=== PATIENT | male | born 1995 | race Two or more races ===

== ENCOUNTER 2018-11-22 21:49 | Emergency (ER) | payer MEDICAID, OTHER ==
--- NOTE | 2018-11-22 21:58 | EDPHY ---
H & P Stated Complaint: PASSED OUT YEATERDAY NOW WOLFE, SOB, PRESSURE IN BACK AND CHEST Source: Patient Exam Limitations: No limitations - Personal History Current Tetanus/Diphtheria Vaccine: Yes Current Tetanus Diphtheria and Acellular Pertussis (TDAP): Yes - Medical/Surgical History Hx Asthma: No Hx Chronic Respiratory Disease: No Hx Diabetes: No Hx Cardiac Disease: No Hx Renal Disease: No Hx Cirrhosis: No Hx Alcoholism: No Hx HIV/AIDS: No Hx Splenectomy or Spleen Trauma: No Other PMH: CONCUSSIONS S/P FOOTBALL , - Social History Smoking Status: Never smoked Time Seen by Provider: 11/22/18 21:57 HPI/ROS: HPI: This is a 23-year-old male who presents with Chief Complaint: PASSED OUT YESTERDAY NOW WOLFE, SOB, PRESSURE IN BACK AND CHEST Location:head Quality: Dizziness, fainting Duration: Yesterday Signs and Symptoms: no fever, no nausea, no vomiting, no photophobia, no noise sensitivity, no neck stiffness, no ear pain, no tinnitus, no nasal congestion, no sinus pressure, no weakness, no radiation, no aura, no seizure activity Timing: Lasted for 10-15 seconds per bystander Severity: Moderate Context: Patient reports that he was drinking over the weekend celebrating Evin's Day. He also was using marijuana. Yesterday he was sitting down watching TV when he started to feel "lightheaded" and then "fainted." This was witnessed by bystanders and lasted approximately 10-15 seconds. When he woke up he did not remember "passing out." He reports that since yesterday he has had a generalized headache, not the worse headache of his life and denies thunderclap symptoms. He also reports that he has pressure in his back and chest that is nonradiating in nature and comes and goes. Denies any upper respiratory symptoms or rash. Patient drinks energy drinks overnight while he works 12 hr shifts. Modifying Factors: None Comment: ROS: A comprehensive 10 system review of systems is otherwise negative aside from elements mentioned in the history of present illness. MEDICAL/SURGICAL/SOCIAL HISTORY: Medical history: Asthma, history concussion Surgical history: Denies Social history: Admits to alcohol and marijuana use. Employed. Family history noncontributory. CONSTITUTIONAL: Slightly anxious, , well-appearing male, awake and alert, no obvious distress HEENT: Atraumatic and normocephalic, PERRL, EOMI. Nares patent; no rhinorrhea; no nasal mucosal edema. Tympanic membranes clear. Oropharynx clear, no exudate and moist pink mucosa. Airway patent. No lymphadenopathy. No meningismus. Cardiovascular: Normal S1/S2, regular rate, regular rhythm, without murmur rub or gallop. PULMONARY/CHEST: Symmetrical and nontender. Clear to auscultation bilaterally. Good air movement. No accessory muscle usage. ABDOMEN: Soft, nondistended, nontender, no rebound, no guarding, no peritoneal signs, no masses or organomegaly. No CVAT. EXTREMITIES: 2/2 pulses, strength 5/5, no deformities, no clubbing, no cyanosis or edema. NEUROLOGICAL: no focal neuro deficits. GCS 15. Cranial nerves 2-12 grossly intact. Normal [id number] test. Normal [id number] test. Normal Romberg testing. Speech normal. SKIN: Warm and dry, no erythema. no rash. Good capillary refill. (Tere Patel) Constitutional: Initial Vital Signs Temperature (C) 37.1 C 11/22/18 21:52 Heart Rate 102 H 11/22/18 21:52 Respiratory Rate 18 11/22/18 21:52 Blood Pressure 127/85 H 11/22/18 21:52 O2 Sat (%) 95 11/22/18 21:52 O2 Delivery Mode Room Air Allergies/Adverse Reactions: No Known Allergies Allergy (Unverified 11/22/18 21:55) Home Medications: Medication Instructions Recorded Albuterol Inhaler 08/10/09 Medical Decision Making ED Course/Re-evaluation: Vital signs reviewed and show mild tachycardia. Placed on nuclear monitoring technician. EKG, IV access, laboratory studies ordered No neurological deficits to warrant imaging of the brain. Given 1 L normal saline 2240: EKG my read shows normal sinus rhythm rate of 99 beats per minute, early repolarization, with no acute ischemic changes, no arrhythmia, no heart block 2243: Notified by tech; trop 0.01 2317: Labs reviewed. No signs of leukocytosis/anemia/platelet dysfunction/ANTONIO/ elevated LFTs/electrolyte imbalance/VTE/thyroid disease. This patient was seen under the supervision of my secondary supervising physician. I evaluated care for this patient independently. (Tere Patel) Differential Diagnosis: Dizziness including but not limited to peripheral and central causes of vertigo , orthostatic causes including dehydration, and blood loss. (Tere Patel) PHYSICIAN DOCUMENTATION: The patient was evaluated and managed by the Physician Appeals Officer. My co- signature indicates that I have reviewed this chart and I agree with the findings and plan of care as documented. I am the secondary supervising physician. (Jennifer Urena) - Data Points Laboratory Results: Laboratory Results 11/22/18 22:20 11/22/18 22:20 11/22/18 11/22/18 11/22/18 22:25 22:20 22:20 WBC RBC Hgb Hct MCV MCH MCHC RDW Plt Count MPV Neut % (Auto) Lymph % (Auto) [place] % (Auto) Eos % (Auto) Baso % (Auto) Nucleat RBC Rel Count Absolute Neuts (auto) Absolute Lymphs (auto) Absolute Monos (auto) Absolute Eos (auto) Absolute Basos (auto) Absolute Nucleated RBC Immature Gran % Immature Gran # D-Dimer < 0.27 ug/mLFEU ug/mLFEU (0.00-0.50) Sodium 138 mEq/L mEq/L (135-145) Potassium 4.3 mEq/L mEq/L (3.5-5.2) Chloride 103 mEq/L mEq/L (97-110) Carbon Dioxide 25 mEq/l mEq/l (22-31) Anion Gap 10 mEq/L mEq/L (6-14) BUN 16 mg/dL mg/dL (7-23) Creatinine 0.9 mg/dL mg/dL (0.7-1.3) Estimated GFR > 60 Glucose 103 mg/dL H mg/dL (70-100) Calcium 9.8 mg/dL mg/dL (8.5-10.4) Magnesium 1.9 mg/dL mg/dL (1.6-2.3) Total Bilirubin 0.4 mg/dL mg/dL (0.1-1.4) Conjugated Bilirubin 0.4 mg/dL mg/dL (0.0-0.5) Unconjugated Bilirubin 0.0 mg/dL mg/dL (0.0-1.1) AST 37 IU/L IU/L (17-59) ALT 47 IU/L IU/L (21-72) Alkaline Phosphatase 82 IU/L IU/L (38-126) POC Troponin I 0.01 ng/mL ng/mL (0.00-0.08) Total Protein 7.5 g/dL g/dL (6.3-8.2) Albumin 4.4 g/dL g/dL (3.5-5.0) TSH 2.040 uIU/mL uIU/mL (0.465-4.680) 11/22/18 22:20 WBC 8.03 10^3/uL 10^3/uL (3.80-9.50) RBC 5.20 10^6/uL 10^6/uL (4.40-6.38) Hgb 16.3 g/dL g/dL (13.7-17.5) Hct 48.4 % % (40.0-51.0) MCV 93.1 fL fL (81.5-99.8) MCH 31.3 pg pg (27.9-34.1) MCHC 33.7 g/dL g/dL (32.4-36.7) RDW 12.5 % % (11.5-15.2) Plt Count 236 10^3/uL 10^3/uL (150-400) MPV 10.7 fL fL (8.7-11.7) Neut % (Auto) 60.4 % % (39.3-74.2) Lymph % (Auto) 28.0 % % (15.0-45.0) [place] % (Auto) 9.1 % % (4.5-13.0) Eos % (Auto) 1.9 % % (0.6-7.6) Baso % (Auto) 0.5 % % (0.3-1.7) Nucleat RBC Rel Count 0.0 % % (0.0-0.2) Absolute Neuts (auto) 4.85 10^3/uL 10^3/uL (1.70-6.50) Absolute Lymphs (auto) 2.25 10^3/uL 10^3/uL (1.00-3.00) Absolute Monos (auto) 0.73 10^3/uL 10^3/uL (0.30-0.80) Absolute Eos (auto) 0.15 10^3/uL 10^3/uL (0.03-0.40) Absolute Basos (auto) 0.04 10^3/uL 10^3/uL (0.02-0.10) Absolute Nucleated RBC 0.00 10^3/uL 10^3/uL (0-0.01) Immature Gran % 0.1 % % (0.0-1.1) Immature Gran # 0.01 10^3/uL 10^3/uL (0.00-0.10) D-Dimer Sodium Potassium Chloride Carbon Dioxide Anion Gap BUN Creatinine Estimated GFR Glucose Calcium Magnesium Total Bilirubin Conjugated Bilirubin Unconjugated Bilirubin AST ALT Alkaline Phosphatase POC Troponin I Total Protein Albumin TSH Medications Given: Discontinued Medications Sodium Chloride (Ns) 1,000 mls @ 0 mls/hr IV ONCE ONE; Wide Open PRN Reason: Protocol Stop: 11/22/18 22:04 Last Admin: 11/22/18 22:17 Dose: 1,000 mls Point of Care Test Results: Chemistry 11/22/18 22:25 POC Troponin I 0.01 ng/mL ng/mL (0.00-0.08) Departure - Departure Disposition: Home, Routine, Self-Care Clinical Impression: Fainting Condition: Good Instructions: Syncope (ED) Additional Instructions: Rest as much as possible until you are feeling better. Consume a minimum of 8-10 glasses of water or electrolyte fluid replacement drinks that include Gatorade, Powerade, Pedialyte. Avoid any intoxicants including alcohol, tobacco, drugs. [facility]. Stop consuming energy drinks. Take Tylenol 650 mg every 4 hours and/or Ibuprofen 600 mg every 8 hours with food as needed for pain. Return to the ER immediately if you experience new, continued or worsened chest pain, chest pain that radiates, chest pain accompanied by exertion or associated with shortness of breath, sweating, nausea, dizziness, back pain, or any other symptoms that concern you. Referrals: [facility],. [Clinic] - As per Instructions
[2018-11-22] MEDS ORDERED: NS 1,000 ML IV ONE (22:03)
[2018-11-22 22:32] LABS: PLATELET COUNT 236 10^3/uL (150-400)
[2018-11-22 23:25] VITALS: BP 135/86
--- NOTE | 2018-11-23 05:34 | CPEKG ---
Test Reason : OPEN Blood Pressure : / mmHG Vent. Rate : 099 BPM Atrial Rate : 102 BPM P-R Int : 154 ms QRS Dur : 078 ms QT Int : 319 ms P-R-T Axes : 068 072 015 degrees QTc Int : [address] elev, probable normal early repol pattern Confirmed by Jennifer Urena ([id number]) on 11/23/2018 5:33:27 AM Referred By: Jennifer Urena Confirmed By:Jennifer Urena
== END 2018-11-22 23:25 | disposition home or self-care (01) ==
DX: R55 Syncope and collapse (principal); E86.9 Volume depletion, unspecified; F10.99 Alcohol use, unspecified with unspecified alcohol-induced disorder; F12.90 Cannabis use, unspecified, uncomplicated
CPT/HCPCS: 84484-ER